=== PATIENT | female | born 1995 | race Caucasian/White ===

== ENCOUNTER 2018-02-02 22:25 | Emergency (ER) | payer BC, OTHER ==
[2018-02-02 22:51] VITALS: BP 121/71; PULSE 84; RESP 18; TEMP 98.2
--- NOTE | 2018-02-02 23:02 | ED PDOC ---
HPI: Female Pain Time Seen by Provider: 02/02/18 22:58 Chief Complaint (Nursing): Female Genitourinary Chief Complaint (Provider): hematuria History Per: Patient Additional Complaint(s): 23-year-old female with no past medical history presents to emergency department with hematuria and suprapubic pain that started 2 hours prior to arrival. Patient denies fever or chills. No associated flank pain or back pain. PMD: Dr. Cordell De Jesus Past Medical History Reviewed: Historical Data, Nursing Documentation, Vital Signs Vital Signs: Last Vital Signs Temp 98.2 F 02/02/18 22:47 Pulse 84 02/02/18 22:47 Resp 18 02/02/18 22:47 BP 121/71 02/02/18 22:47 Pulse Ox 10 L 02/02/18 22:47 - Medical History PMH: Anxiety - Surgical History Surgical History: No Surg Hx - Family History Family History: States: No Known Family Hx - Living Arrangements Living Arrangements: With Friends/Others - Social History Current smoker - smoking cessation education provided: No Alcohol: Social Drugs: Denies - Home Medications Home Medications: Ambulatory Orders Medication Instructions Recorded Meloxicam 15 mg PO DAILY #14 tab 09/15/15 Nitrofurantoin Macrocrystals 100 mg PO BID #14 cap 02/02/18 [Macrobid] Phenazopyridine HCl [Pyridium] 200 mg PO TID PRN #9 tablet 02/02/18 - Allergies Allergies/Adverse Reactions: Allergies Allergy/AdvReac Type Severity Reaction Status Date / Time No Known Allergies Allergy Verified 09/15/15 08:48 Review of Systems ROS Statement: Except As Marked, All Systems Reviewed And Found Negative Constitutional: Negative for: Fever, Chills Gastrointestinal: Positive for: Abdominal Pain (suprapubic). Negative for: Nausea, Vomiting Genitourinary Female: Positive for: Dysuria, Hematuria. Negative for: Vaginal Bleeding Physical Exam - Reviewed Nursing Documentation Reviewed: Yes Vital Signs Reviewed: Yes - Physical Exam Appears: Positive for: Well, Non-toxic, No Acute Distress Skin: Negative for: Rash Eye Exam: Positive for: Normal appearance Cardiovascular/Chest: Positive for: Regular Rate, Rhythm Respiratory: Positive for: Normal Breath Sounds Gastrointestinal/Abdominal: Positive for: Soft, Tenderness (suprapubic). Negative for: Distended, Guarding, Rebound Back: Negative for: L CVA Tenderness, R CVA Tenderness Extremity: Positive for: Normal ROM Neurologic/Psych: Positive for: Alert, Oriented - Laboratory Results Urine POC: Negative Urine dip results: Positive for: Leukocyte Esterase (large), Blood (large), Nitrate (positive) - ECG O2 Sat by Pulse Oximetry: 100 Pulse Ox Interpretation: Normal Medical Decision Making Medical Decision Making: Impression: Hemorrhagic cystitis Plan: Urine dip Urine test Urine culture PO macrobid 100 mg PO pyridium 200 mg Prescriptions given for Macrobid and Pyridium. Advised fluids, rest and follow- up with primary doctor in 2-3 days. Disposition - Clinical Impression Clinical Impression: Hemorrhagic cystitis - Patient ED Disposition Is Patient to be Admitted: No Counseled Patient/Family Regarding: Studies Performed, Diagnosis, Need For Followup, Rx Given - Disposition Referrals: José Luis De Jesus MD [Medical Doctor] - Disposition: Routine/Home Disposition Time: 23:21 Condition: STABLE Additional Instructions: Take prescription meds as directed. Drink plenty of fluids. Follow up with primary doctor in 2-3 days. Prescriptions: Nitrofurantoin Macrocrystals [Macrobid] 100 mg PO BID #14 cap Phenazopyridine HCl [Pyridium] 200 mg PO TID PRN #9 tablet PRN Reason: Bladder Spasm Instructions: Acute Cystitis (DC) Forms: [employer] (Salvadorean)
[2018-02-02 23:46] VITALS: O2SAT 100
== END 2018-02-02 23:54 | disposition home or self-care (01) ==
LOC: H.ER 22:25
DX: N30.90 Cystitis, unspecified without hematuria (principal)

== ENCOUNTER 2018-02-17 03:52 | Emergency (ER) | payer OTHER ==
[2018-02-17 04:06] VITALS: BMI 46.9
--- NOTE | 2018-02-17 04:19 | ED PDOC ---
HPI: Psych/Substance Abuse Time Seen by Provider: 02/17/18 03:56 Chief Complaint (Provider): alcohol/ substance abuse ED Caveat: Intoxicated History Per: EMS History/Exam Limitations: no limitations Onset/Duration Of Symptoms: Mins (just prior to arrival) Current Symptoms Are (Timing): Still Present Additional Complaint(s): 23 yo female, brought in by EMS, with a history of anxiety presents to the ED for intoxication and possible substance abuse. Patient history and review of systems are unobtainable because the patient is currently intoxicated , uncooperative, and unable to answer any of the provider's questions. Past Medical History Reviewed: Historical Data, Nursing Documentation, Vital Signs, Unable To Obtain (patient is currently intoxicated, uncooperative, and unable to answer any of the provider's question) - Medical History PMH: Anxiety - Surgical History Surgical History: No Surg Hx - Family History Family History: States: Unknown Family Hx - Living Arrangements Living Arrangements: Other (is a [employer] student and dorms) - Home Medications Home Medications: Ambulatory Orders Medication Instructions Recorded Meloxicam 15 mg PO DAILY #14 tab 09/15/15 Nitrofurantoin Macrocrystals 100 mg PO BID #14 cap 02/02/18 [Macrobid] Phenazopyridine HCl [Pyridium] 200 mg PO TID PRN #9 tablet 02/02/18 - Allergies Allergies/Adverse Reactions: Allergies Allergy/AdvReac Type Severity Reaction Status Date / Time No Known Allergies Allergy Verified 09/15/15 08:48 Review of Systems ROS Statement: Except As Marked, All Systems Reviewed And Found Negative Review Of Systems: ROS cannot be obtained secondary to pt's inabilty to answer questions. (patient is currently intoxicated, uncooperative, and unable to answer any of the provider's question) Physical Exam - Reviewed Nursing Documentation Reviewed: Yes Vital Signs Reviewed: Yes - Physical Exam Appears: Positive for: Well, Non-toxic, No Acute Distress Head Exam: Positive for: ATRAUMATIC, NORMAL INSPECTION, NORMOCEPHALIC Skin: Positive for: Normal Color, Warm, DRY Eye Exam: Positive for: EOMI, Normal appearance, PERRL ENT: Positive for: Normal ENT Inspection Neck: Positive for: Normal, Painless ROM Cardiovascular/Chest: Positive for: Regular Rate, Rhythm. Negative for: Murmur Respiratory: Positive for: Normal Breath Sounds. Negative for: Respiratory Distress Gastrointestinal/Abdominal: Positive for: Normal Exam, Soft. Negative for: Tenderness Back: Positive for: Normal Inspection Extremity: Positive for: Normal ROM. Negative for: Pedal Edema, Deformity Neurologic/Psych: Positive for: Alert (responsive but uncooperative at times), Other (patient is sexually preoccupied). Negative for: Oriented, Motor/Sensory Deficits - Laboratory Results Result Diagrams: 02/17/18 05:09 02/17/18 05:09 - Critical Care Total Time (In Min): 30 Medical Decision Making Medical Decision Making: Time: --04:06 Impression: --23 yo female with alcohol/substance abuse Plan: --ECG --Labs --Drug screen, urine --ed urine dip -urine preg --Dextrose IV --Haldol 5mg IM --Ativan 2mg IM --Heplock Insertion --1:1 Observation Cont --Accucheck --Restraint: Violent or harm to self/other --urinalysis Reassess --04:15 4 point restraints were ordered in order to ensure the safety of the staff and the patient herself because she is being uncooperative and violent. --07:00 Patient to be signed out to Dr. Acuna pending clinical sobriety and reevaluation. Scribe Attestation: Documented by Alcon Rodney acting as a scribe for Florencio Freeman MD. Provider Attestation: All medical record entries made by the Scribe were at my direction and personally dictated by me. I have reviewed the chart and agree that the record accurately reflects my personal performance of the history, physical exam, medical decision making, and the department course for this patient. I have also personally directed, reviewed, and agree with the discharge instructions and disposition. Disposition - Clinical Impression Clinical Impression: Alcohol abuse with intoxication - Patient ED Disposition Is Patient to be Admitted: Transfer of Care - Disposition Disposition: Transfer of Care Disposition Time: 07:00 Condition: FAIR Patient Signed Over To: José Luis Acuna
[2018-02-17 05:14] LABS: BASO % 0.3 % (0.0-2.0); HEMOGLOBIN 13.3 g/dL (12.0-16.0); LYMPH # 0.8 K/uL (1.0-4.3); LYMPH % 7.6 % (20.0-40.0); MEAN CORPUSCULAR HEMOGLOBIN 30.2 pg (27.0-31.0); MEAN CORPUSCULAR HGB CONC 33.2 g/dL (33.0-37.0); MEAN PLATELET VOLUME 7.5 fl (7.2-11.7); MONO # 0.3 K/uL (0.0-0.8); MONO % 3.4 % (0.0-10.0); NEUT # 8.9 K/uL (1.8-7.0); NEUT % 88.7 % (50.0-75.0); PLATELET COUNT 261 K/uL (130-400); RBC 4.42 Mil/uL (3.80-5.20); RED CELL DISTRIBUTION WIDTH 13.4 % (11.5-14.5); WHITE BLOOD COUNT 10.1 K/uL (4.8-10.8)
[2018-02-17 05:19] LABS: ALB/GLOB RATIO 1.2 (1.0-2.1); ALT/SGPT 43 U/L (9-52); AST/SGOT 37 U/L (14-36); BLOOD UREA NITROGEN 14 mg/dl (7-17); CALCIUM 8.1 mg/dL (8.4-10.2); GFR AFRICAN-AMERICAN > 60; GFR NON-AFRICAN AMERICAN > 60
[2018-02-17] MEDS: Dextrose 5%/0.45% NS 1,000 ML IV SCH (05:39)
[2018-02-17 07:03] VITALS: O2SAT 100
--- NOTE | 2018-02-17 07:13 | ED PDOC ---
- Laboratory Results Result Diagrams: 02/17/18 05:09 02/17/18 05:09 - ECG O2 Sat by Pulse Oximetry: 100 Medical Decision Making Medical Decision Making: Time: 07:00 Patient signed over to me by Dr. Freeman pending clinical sobriety and reevaluation. no evidence of assault on physical exam. Discussed with [employer] and [place]. Pt in agreement that she does not wish to pursue legal action as their is no evidence of assault. Will test for GC, Chlamydia, HIV and Hepatitis. No prophylaxis necessary as their is no evidence of sexual contact. Scribe Attestation: Documented by Kirk Kay, acting as a scribe for José Luis Acuna MD. Provider Scribe Attestation: All medical record entries made by the Scribe were at my direction and personally dictated by me. I have reviewed the chart and agree that the record accurately reflects my personal performance of the history, physical exam, medical decision making, and the department course for this patient. I have also personally directed, reviewed, and agree with the discharge instructions and disposition. Disposition - Clinical Impression Clinical Impression: Alcohol intoxication - POA Present On Arrival: None - Disposition Referrals: [facility] [Outside] Disposition: Routine/Home Disposition Time: 14:24 Condition: FAIR Instructions: Alcohol Abuse and Alcoholism (DC) Forms: [employer] (Gambian) Physical Exam - RECTAL Rectal: absent: lesions (No lacerations or bruising. No bleeding) - GENITOURINARY / PELVIC FEMALE Genitourinary / Pelvic Exam: normal external genitalia, no cervical motion tender, no adenexal tenderness, no vaginal discharge. absent: vaginal lesions ( No external lacerations or bruising. No vaginal wall tears. No discharge or bleeding. No tenderness on bimanual exam.)
[2018-02-17 08:17] LABS: BARBITURATES, UR NEGATIVE (NEGATIVE); BENZODIAZEPINES, UR NEGATIVE (NEGATIVE); OPIATES, UR NEGATIVE (NEGATIVE); PHENCYCLIDINE, UR NEGATIVE (NEGATIVE)
[2018-02-17 08:20] VITALS: RESP 14
--- NOTE | 2018-02-17 09:50 | CARD ---
APPROVED REPORT EKG Measurement Heart [id number] <Conclusion> Normal sinus rhythm Prolonged QT Abnormal ECG
[2018-02-17 10:19] LABS: LYMPHOCYTE 7 % (20-50); MONOCYTE 4 % (0-10); NEUTROPHIL 89 % (42-75); PLATELET ESTIMATE NORMAL (NORMAL); TOTAL CELLS COUNTED 100
[2018-02-17 12:30] VITALS: BP 106/68; PULSE 81; TEMP 98
[2018-02-17 15:02] LABS: URINE BILIRUBIN NEGATIVE (NEGATIVE); URINE BLOOD NEGATIVE (NEGATIVE); URINE CLARITY CLEAR (Clear); URINE COLOR STRAW (YELLOW); URINE GLUCOSE (UA) 150 mg/dL (Normal); URINE LEUKOCYTE ESTERASE NEG Leu/uL (Negative); URINE PROTEIN NEGATIVE (NEGATIVE); URINE UROBILINOGEN 0.2-1.0 mg/dL (0.2-1.0)
[2018-02-17] MEDS ORDERED: cefTRIAXone (Rocephin) 1 gm Inj ONE (15:41)
[2018-02-17] MEDS ORDERED: Potassium Chloride 20 mEq ER Tab PO ONE (16:07)
[2018-02-17] MEDS: Potassium Chloride 20 mEq ER Tab PO ONE (16:09)
[2018-02-17 20:51] LABS: HEPATITIS B SURFACE AG Negative (NEGATIVE)
[2018-02-17 20:57] LABS: HEPATITIS A IGM NEGATIVE (NEGATIVE); HEPATITIS B CORE AB NEGATIVE (NEGATIVE)
[2018-02-17 21:09] LABS: HEPATITIS C ANTIBODY NEGATIVE (NEGATIVE)
== END 2018-02-17 18:15 | disposition home or self-care (01) ==
LOC: H.ER 03:52
DX: F10.129 Alcohol abuse with intoxication, unspecified (principal); F41.9 Anxiety disorder, unspecified
CPT/HCPCS: 80053; 80074; 80320; 80324; 80345; 80346; 80349; 80353; 80358; 80361; 81003; 81025; 82948; 83992; 84702; 85025; 87390; 87491; 87591; 93005; 96360; 96372; 99285; J0696; J1630; J2060; J7042

== ENCOUNTER 2018-05-18 23:51 | Emergency (ER) | payer OTHER ==
[2018-05-18 23:51] VITALS: BMI 46.9
[2018-05-18 23:55] VITALS: BP 116/76; PULSE 64; RESP 16; TEMP 97.7; O2SAT 98
--- NOTE | 2018-05-19 02:19 | ED PDOC ---
HPI: General Adult Time Seen by Provider: 05/19/18 02:10 Chief Complaint (Nursing): GI Problem Chief Complaint (Provider): Dehydration History Per: Patient History/Exam Limitations: no limitations Onset/Duration Of Symptoms: Hrs (x3) Current Symptoms Are (Timing): Better Additional Complaint(s): 23 year old female brought in by EMS presents to ED for dehydration x3 hours and has no past medical history. Patient states she was at a music festival for the past 5 days, at which she ingested alcohol for long periods of time and had prolonged sun exposure. (+) nausea, (-) vomiting or fever. Patient's boyfriend states the patient had an episode of extreme weakness earlier as well. Confirms attempting hydration with Pedialyte and water. PCP: Nancy Past Medical History Reviewed: Historical Data, Nursing Documentation, Vital Signs Vital Signs: Last Vital Signs Temp 97.7 F 05/19/18 06:55 Pulse 64 05/19/18 06:55 Resp 16 05/19/18 06:55 BP 116/76 05/19/18 06:55 Pulse Ox 98 05/19/18 06:55 - Medical History PMH: Anxiety Denies: Diabetes, Hepatitis, HIV, HTN, Seizures, Sexually Transmitted Disease - Surgical History Surgical History: No Surg Hx - Family History Family History: States: Unknown Family Hx - Social History Current smoker - smoking cessation education provided: No Ex-Smoker (has not smoked in the last 12 months): No Alcohol: Social Drugs: Denies - Home Medications Home Medications: Ambulatory Orders Medication Instructions Recorded Meloxicam 15 mg PO DAILY #14 tab 09/15/15 Nitrofurantoin Macrocrystals 100 mg PO BID #14 cap 02/02/18 [Macrobid] Phenazopyridine HCl [Pyridium] 200 mg PO TID PRN #9 tablet 02/02/18 Levonorgestrel [Plan B One-Step] 1.5 mg PO ONCE 1 Days #1 tab 02/17/18 Metronidazole [Flagyl] 2,000 mg PO ONCE #4 tablet 02/17/18 - Allergies Allergies/Adverse Reactions: Allergies Allergy/AdvReac Type Severity Reaction Status Date / Time No Known Allergies Allergy Verified 05/18/18 23:52 Review of Systems ROS Statement: Except As Marked, All Systems Reviewed And Found Negative Constitutional: Positive for: Other ((+) dehydration). Negative for: Fever Gastrointestinal: Positive for: Nausea. Negative for: Vomiting Physical Exam - Reviewed Nursing Documentation Reviewed: Yes Vital Signs Reviewed: Yes - Physical Exam Appears: Positive for: Well, No Acute Distress. Negative for: Non-toxic ( currently resting in bed in NAD, sleeping comfortably every time i go into the room) Skin: Positive for: Normal Color, Warm, Dry Eye Exam: Positive for: Normal appearance Neck: Positive for: Normal Cardiovascular/Chest: Positive for: Regular Rate, Rhythm. Negative for: Murmur Respiratory: Positive for: Normal Breath Sounds. Negative for: Respiratory Distress Gastrointestinal/Abdominal: Positive for: Soft. Negative for: Tenderness Extremity: Positive for: Normal ROM. Negative for: Deformity Neurologic/Psych: Positive for: Alert, Oriented. Negative for: Motor/Sensory Deficits - Laboratory Results Result Diagrams: 05/19/18 02:36 05/19/18 02:36 - ECG O2 Sat by Pulse Oximetry: 98 (RA) Pulse Ox Interpretation: Normal Medical Decision Making Medical Decision Makin Initial impression: alcohol-induced dehydration Initial plan: * BETA HCG * Labs * NS IV * Zofran 4mg IV * Urine C&S * UA * Re-eval 0330 Blood work and chemistry reviewed: no clinically significant abnormalities. Pending urine. 0355 Labs reviewed: no clinically significant abnormalities. Upon re-evaluation, patient note improvement in symptoms. Patient is stable for discharge home Dx: weakness Condition: stable Scribe Attestation: Documented by Hailey Kay acting as a scribe for Talisha Sinclair MD. Scribe Attestation: All medical record entries made by the Scribe were at my direction and personally dictated by me. I have reviewed the chart and agree that the record accurately reflects my personal performance of the history, physical exam, medical decision making, and the department course for this patient. I have also personally directed, reviewed, and agree with the discharge instructions and disposition. Disposition - Clinical Impression Clinical Impression: Weakness - Patient ED Disposition Is Patient to be Admitted: No Counseled Patient/Family Regarding: Studies Performed, Diagnosis, Need For Followup - Disposition Referrals: José Luis De Jesus MD [Primary Care Provider] - Disposition: Routine/Home Disposition Time: 03:55 Condition: IMPROVED Additional Instructions: ÁNGEL CHRISTIANSON, thank you for letting us take care of you today. Your provider was Talisha Sinclair MD and you were treated for VOMITING, WEAKNESS. The emergency medical care you received today was directed at your acute symptoms. If you were prescribed any medication, please fill it and take as directed. It may take several days for your symptoms to resolve. Return to the Emergency Department if your symptoms worsen, do not improve, or if you have any other problems. Please contact your doctor or call one of the physicians/clinics you have been referred to that are listed on the Patient Visit Information form that is included in your discharge packet. Bring any paperwork you were given at discharge with you along with any medications you are taking to your follow up visit. Our treatment cannot replace ongoing medical care by a primary care provider outside of the emergency department. Thank you for allowing the [facility] team to be part of your care today. If you had an X-Ray or CT scan: A Radiologist will review the ED reading if any change in treatment is needed we will contact you. If you had a blood, urine, or wound culture: It will take several days for the results, if any change in treatment is needed we will contact you. If you had an STI test: It will take 48 hours for the results. Please call after 1 week if you have not heard back. Instructions: Weakness (ED) Forms: [employer] (North Korean)
[2018-05-19 02:52] LABS: BASO # 0.1 K/uL (0.0-0.2); BASO % 0.9 % (0.0-2.0); EOS # 0.1 K/uL (0.0-0.7); EOS % 0.8 % (0.0-4.0); HEMOGLOBIN 13.6 g/dL (12.0-16.0); LYMPH # 2.3 K/uL (1.0-4.3); MEAN CORPUSCULAR HEMOGLOBIN 29.6 pg (27.0-31.0); MEAN CORPUSCULAR HGB CONC 33.2 g/dL (33.0-37.0); MEAN PLATELET VOLUME 7.3 fl (7.2-11.7); MONO # 0.7 K/uL (0.0-0.8); NEUT # 4.9 K/uL (1.8-7.0); NEUT % 60.3 % (50.0-75.0); RBC 4.59 Mil/uL (3.80-5.20); RED CELL DISTRIBUTION WIDTH 14.3 % (11.5-14.5); WHITE BLOOD COUNT 8.1 K/uL (4.8-10.8)
[2018-05-19 02:53] LABS: ALB/GLOB RATIO 1.1 (1.0-2.1); ALBUMIN 3.5 g/dL (3.5-5.0); ALT/SGPT 26 U/L (9-52); AST/SGOT 24 U/L (14-36); BLOOD UREA NITROGEN 14 mg/dl (7-17); CALCIUM 8.9 mg/dL (8.4-10.2); GFR AFRICAN-AMERICAN > 60; GFR NON-AFRICAN AMERICAN > 60
[2018-05-19] MEDS: Sodium Chloride 0.9% 1,000 ML IV STA (03:26)
[2018-05-19 03:40] LABS: SPERM URINE RARE /hpf; SQUAMOUS EPITHIAL 2 /hpf (0-5); URINE BILIRUBIN NEGATIVE (NEGATIVE); URINE BLOOD SMALL (NEGATIVE); URINE CLARITY SLIGHTY-CLOUDY (Clear); URINE COLOR YELLOW (YELLOW); URINE GLUCOSE (UA) NEG (Normal); URINE HYALINE CAST 0-2 /hpf (0-2); URINE LEUKOCYTE ESTERASE NEG Leu/uL (Negative); URINE PROTEIN NEGATIVE (NEGATIVE); URINE UROBILINOGEN 0.2-1.0 mg/dL (0.2-1.0)
== END 2018-05-19 04:21 | disposition home or self-care (01) ==
LOC: H.ER 23:51
DX: R53.1 Weakness (principal); E86.0 Dehydration; F41.9 Anxiety disorder, unspecified; Z87.891 Personal history of nicotine dependence
CPT/HCPCS: 80053; 81003; 84702; 85025; 87086; 99283; J7030

== ENCOUNTER 2018-09-23 09:24 | Emergency (ER) | payer OTHER ==
[2018-09-23 09:24] VITALS: BMI 46.9
--- NOTE | 2018-09-23 10:21 | ED PDOC ---
HPI: Abdomen Time Seen by Provider: 09/23/18 09:36 Chief Complaint (Nursing): Abdominal Pain Chief Complaint (Provider): Abdominal pain History Per: Patient History/Exam Limitations: no limitations Additional Complaint(s): Pt @ 16 weeks gestation presents with one episode of vomiting and lower abdominal pain X 1 day. + ultrasound in past. Denies fever, constipation, diarrhea, vaginal bleeding. Abnormal Vaginal Bleeding: No Last Menstral Period: 06/09/18 : 1 Para: 0 Miscarriage: 0 Past Medical History Reviewed: Nursing Documentation, Vital Signs Vital Signs: Last Vital Signs Temp 97.5 F L 09/23/18 09:47 Pulse 92 H 09/23/18 09:47 Resp 18 09/23/18 09:47 BP 114/72 09/23/18 09:47 Pulse Ox 100 09/23/18 09:47 - Medical History PMH: Anxiety Denies: Diabetes, Hepatitis, HIV, HTN, Seizures, Sexually Transmitted Disease - Family History Family History: States: Unknown Family Hx - Social History Current smoker - smoking cessation education provided: No Alcohol: None - Home Medications Home Medications: Ambulatory Orders Medication Instructions Recorded RX: Meloxicam 15 mg PO DAILY #14 tab 09/15/15 Nitrofurantoin Macrocrystals 100 mg PO BID #14 cap 02/02/18 [Macrobid] Phenazopyridine HCl [Pyridium] 200 mg PO TID PRN #9 tablet 02/02/18 Levonorgestrel [Plan B One-Step] 1.5 mg PO ONCE 1 Days #1 tab 02/17/18 Metronidazole [Flagyl] 2,000 mg PO ONCE #4 tablet 02/17/18 Doxylamine/Pyridoxine HCl (B6) 1 each PO QPM PRN #15 tablet. 09/23/18 [Jana Taylor 10-10 mg Tablet] - Allergies Allergies/Adverse Reactions: Allergies Allergy/AdvReac Type Severity Reaction Status Date / Time No Known Allergies Allergy Verified 05/18/18 23:52 Review of Systems Constitutional: Negative for: Fever, Chills Cardiovascular: Negative for: Chest Pain Respiratory: Negative for: Cough, Shortness of Breath Gastrointestinal: Positive for: Nausea, Vomiting, Abdominal Pain. Negative for: Diarrhea Genitourinary Female: Negative for: Dysuria, Hematuria, Vaginal Discharge, Vaginal Bleeding Musculoskeletal: Negative for: Neck Pain, Back Pain Skin: Negative for: Rash, Lesions Neurological: Negative for: Headache, Dizziness Physical Exam - Reviewed Nursing Documentation Reviewed: Yes Vital Signs Reviewed: Yes - Physical Exam Appears: Positive for: Uncomfortable Head Exam: Positive for: ATRAUMATIC, NORMAL INSPECTION Skin: Positive for: Normal Color, Warm, Dry Eye Exam: Positive for: Normal appearance, EOMI, PERRL Cardiovascular/Chest: Positive for: Regular Rate, Rhythm Respiratory: Positive for: Normal Breath Sounds Gastrointestinal/Abdominal: Positive for: Bowel Sounds, Soft, Tenderness (LLQ). Negative for: Mass, Distended, Guarding, Rebound Extremity: Positive for: Normal ROM Neurologic/Psych: Positive for: Alert, Oriented - Laboratory Results Result Diagrams: 09/23/18 10:49 09/23/18 10:49 - ECG O2 Sat by Pulse Oximetry: 100 Medical Decision Making Medical Decision Makin yo female @ 16 weeks with LLQ pain. - labs - pelvic ultrasound - Tylenol - Zofran - IVF Accession No. : [id number] Patient Name / ID : SAMMY NEAL / [id number] Exam Date : 09/23/2018 12:02:05 ( Approved ) Study Comment : Sex / Age : F / 23Y Creator : luda corbett Dictator : Cruzito Rich MD Cheese Blender : Label Printing Machinist : Cruzito Rich MD Approver2 : Report Date : 09/23/2018 12:39:46 My Comment : Date of service: 09/23/2018 PROCEDURE: Second trimester limited ultrasound HISTORY: Pelvic pain, 16 weeks COMPARISON: None TECHNIQUE: Standard protocol for this study/examination. FINDINGS: Breech presentation. Posterior placenta. No evidence of abruption or previa Gestational age derived from LMP 15 weeks 1 day. JAMAL 03/16/2019. Gestational age derived from the following biometric parameters 16 weeks 1 day. JAMAL 03/09/2019 Biparietal diameter 3.33 cm Head circumference 12.28 cm Abdominal circumference 10.14 cm Femur length 2.05 cm Estimated weight 146 g Calculated cardiac rate 162 beats per min. Closed cervix measuring 4.33 cm Unremarkable maternal adnexae as visualized. IMPRESSION: 16 weeks 1 day live intrauterine gestation. Gestational concordance documented Disposition - Clinical Impression Clinical Impression: Abdominal pain during - Disposition Disposition: Routine/Home Disposition Time: 13:15 Condition: STABLE Additional Instructions: FOLLOW-UP WITH YOUR OB WITHIN 2 DAYS FOR REEVALUATION. TAKE TYLENOL NEEDED FOR PAIN. Prescriptions: Doxylamine/Pyridoxine HCl (B6) [Jana Taylor 10-10 mg Tablet] 1 each PO QPM PRN #15 tablet. PRN Reason: Nausea/Vomiting Instructions: Acute Abdomen (Belly Pain), - The Fourth Month, - The Fifth Month Forms: [employer] (Kyrgyz)
[2018-09-23 10:40] LABS: SQUAMOUS EPITHIAL 6 /hpf (0-5); URINE BACTERIA RARE (<OCC); URINE BILIRUBIN NEGATIVE (NEGATIVE); URINE BLOOD NEGATIVE (NEGATIVE); URINE CLARITY CLOUDY (Clear); URINE COLOR YELLOW (YELLOW); URINE GLUCOSE (UA) NEG (Normal); URINE LEUKOCYTE ESTERASE NEG Leu/uL (Negative); URINE PROTEIN 30 mg/dL (NEGATIVE); URINE UROBILINOGEN 0.2-1.0 mg/dL (0.2-1.0)
[2018-09-23] MEDS: Sodium Chloride 0.9% 1,000 ML IV STA (10:56)
[2018-09-23 10:59] LABS: BASO % 0.3 % (0.0-2.0); EOS % 0.1 % (0.0-4.0); HEMOGLOBIN 13.1 g/dL (12.0-16.0); LYMPH # 1.2 K/uL (1.0-4.3); LYMPH % 12.8 % (20.0-40.0); MEAN CORPUSCULAR HEMOGLOBIN 32.5 pg (27.0-31.0); MEAN CORPUSCULAR HGB CONC 36.5 g/dL (33.0-37.0); MEAN PLATELET VOLUME 7.2 fl (7.2-11.7); MONO # 0.5 K/uL (0.0-0.8); MONO % 5.6 % (0.0-10.0); NEUT # 7.8 K/uL (1.8-7.0); NEUT % 81.2 % (50.0-75.0); RBC 4.04 Mil/uL (3.80-5.20); RED CELL DISTRIBUTION WIDTH 13.6 % (11.5-14.5); WHITE BLOOD COUNT 9.6 K/uL (4.8-10.8)
[2018-09-23 11:10] LABS: ALBUMIN 3.6 g/dL (3.5-5.0); BLOOD UREA NITROGEN 7 mg/dl (7-17); CALCIUM 9.3 mg/dL (8.4-10.2); GFR NON-AFRICAN AMERICAN > 60
[2018-09-23 11:11] LABS: ALB/GLOB RATIO 1.1 (1.0-2.1); ALT/SGPT 26 U/L (9-52); AST/SGOT 22 U/L (14-36)
[2018-09-23 11:29] VITALS: RESP 18; TEMP 97.5; O2SAT 100
--- NOTE | 2018-09-23 13:21 | US ---
Date of service: 09/23/2018 PROCEDURE: Second trimester limited ultrasound HISTORY: Pelvic pain, 16 weeks COMPARISON: None TECHNIQUE: Standard protocol for this study/examination. FINDINGS: Breech presentation. Posterior placenta. No evidence of abruption or previa Gestational age derived from LMP 15 weeks 1 day. JAMAL 03/16/2019. Gestational age derived from the following biometric parameters 16 weeks 1 day. JAMAL 03/09/2019 Biparietal diameter 3.33 cm Head circumference 12.28 cm Abdominal circumference 10.14 cm Femur length 2.05 cm Estimated weight 146 g Calculated cardiac rate 162 beats per min. Closed cervix measuring 4.33 cm Unremarkable maternal adnexae as visualized. IMPRESSION: 16 weeks 1 day live intrauterine gestation. Gestational concordance documented
[2018-09-23 13:50] VITALS: BP 118/70; PULSE 88
== END 2018-09-23 13:48 | disposition home or self-care (01) ==
LOC: H.ER 09:24
DX: O26.92 Pregnancy related conditions, unspecified, second trimester (principal); R10.2 Pelvic and perineal pain; Z3A.16 16 weeks gestation of pregnancy
CPT/HCPCS: 76815; 80053; 81003; 81025; 85025; 96374; 99284; J2405; J7030

== ENCOUNTER 2018-11-11 10:32 | Emergency (ER) | payer OTHER ==
[2018-11-11 10:32] VITALS: BMI 46.9
[2018-11-11 10:37] VITALS: RESP 18
--- NOTE | 2018-11-11 11:49 | ED PDOC ---
HPI: Psych/Substance Abuse Time Seen by Provider: 11/11/18 10:48 Chief Complaint (Nursing): Psychiatric Evaluation Chief Complaint (Provider): PSychiatric Evaluation History Per: Patient History/Exam Limitations: no limitations Current Symptoms Are (Timing): Still Present Additional Complaint(s): 23 year old female presenting for psychiatric evaluation. Patient reports she is at 23 weeks and . Patient states she is here today due to feelings of anxiety and a prior suicidal attempt. Patient states she's been feeling a lot of pressure from missing school due to her and anxiety from her family who is pushing her for an which she and her boyfriend do not feel comfortably with. Patient states she felt overwhelmed and cut herself on her wrist. Patient states her boyfriend stopped her before she was able to make any deep cuts. Patient states she doesn't want to feel this way and is seeking evaluation. Patient reports a history of depression and anxiety in the past and states she was previously taking Xanax and Celexa. Patient denies any current suicidal ideations or homicidal ideations, and auditory or visual hallucinations. Of note, patient states her parents are no longer allowing her to live at home since her and she cannot stay in her boyfriend's apartment due to a conflict with his roommate over her not being able to work and pay rent. Patient states she is currently living in the lounge of his apartment building, but is only able to sleep 2-3 hours a night due to having to pretend to be working to avoid being thrown out. Past Medical History Reviewed: Historical Data, Nursing Documentation, Vital Signs Vital Signs: Last Vital Signs Temp 98.3 F 11/11/18 10:37 Pulse 78 11/11/18 10:37 Resp 18 11/11/18 10:37 BP 126/62 11/11/18 10:37 Pulse Ox 100 11/11/18 10:37 - Medical History PMH: Anxiety Denies: Diabetes, Hepatitis, HIV, HTN, Seizures, Sexually Transmitted Disease - Surgical History Surgical History: No Surg Hx - Family History Family History: States: Unknown Family Hx - Social History Current smoker - smoking cessation education provided: No Alcohol: None Drugs: Denies - Home Medications Home Medications: Ambulatory Orders Medication Instructions Recorded RX: Meloxicam 15 mg PO DAILY #14 tab 09/15/15 Nitrofurantoin Macrocrystals 100 mg PO BID #14 cap 02/02/18 [Macrobid] Phenazopyridine HCl [Pyridium] 200 mg PO TID PRN #9 tablet 02/02/18 Levonorgestrel [Plan B One-Step] 1.5 mg PO ONCE 1 Days #1 tab 02/17/18 Metronidazole [Flagyl] 2,000 mg PO ONCE #4 tablet 02/17/18 Doxylamine/Pyridoxine HCl (B6) 1 each PO QPM PRN #15 tablet. 09/23/18 [Jana Taylor 10-10 mg Tablet] - Allergies Allergies/Adverse Reactions: Allergies Allergy/AdvReac Type Severity Reaction Status Date / Time No Known Allergies Allergy Verified 11/11/18 10:41 Review of Systems ROS Statement: Except As Marked, All Systems Reviewed And Found Negative Constitutional: Negative for: Fever, Chills Cardiovascular: Negative for: Chest Pain Respiratory: Negative for: Shortness of Breath Gastrointestinal: Negative for: Abdominal Pain Genitourinary Female: Negative for: Dysuria, Frequency, Incontinence, Vaginal Bleeding Psych: Positive for: Anxiety. Negative for: Psychosis, Suicidal ideation Physical Exam - Reviewed Nursing Documentation Reviewed: Yes Vital Signs Reviewed: Yes - Physical Exam Appears: Positive for: Non-toxic, No Acute Distress Head Exam: Positive for: ATRAUMATIC, NORMAL INSPECTION, NORMOCEPHALIC Skin: Positive for: Normal Color, Warm, Dry. Negative for: Rash Eye Exam: Positive for: EOMI, Normal appearance, PERRL ENT: Positive for: Normal ENT Inspection Neck: Positive for: Normal, Painless ROM, Supple Cardiovascular/Chest: Positive for: Regular Rate, Rhythm. Negative for: Murmur Respiratory: Positive for: Normal Breath Sounds. Negative for: Respiratory Distress Gastrointestinal/Abdominal: Positive for: Soft, Other (gravid uterus). Negative for: Tenderness Back: Positive for: Normal Inspection. Negative for: L CVA Tenderness, R CVA Tenderness, Vertebral Tenderness Extremity: Positive for: Normal ROM, Other (very superficial saha on left forearm, no open lacerations, no active bleeding). Negative for: Pedal Edema, Deformity Neurologic/Psych: Positive for: Alert, Oriented (x3). Negative for: Motor/Sensory Deficits - Laboratory Results Result Diagrams: 11/11/18 11:46 11/11/18 11:46 - ECG O2 Sat by Pulse Oximetry: 100 (RA) Pulse Ox Interpretation: Normal Medical Decision Making Medical Decision Making: Plan: -Acetaminophen level -Alcohol serum level -CMP -Salicylate -UDS -1:1 observation -Urinalysis -Reevaluation Case discussed with crisis who will evaluate the patient. Patient seen and evaluated by crisis. Per Dr. Castaneda, psychiatrist, patient will be discharged with a diagnosis of depression and advised outpatient follow up in the clinic. Scribe Attestation: Documented by Kirk Kay, acting as a scribe for Talisha Sinclair MD. Provider Scribe Attestation: All medical record entries made by the Scribe were at my direction and personally dictated by me. I have reviewed the chart and agree that the record accurately reflects my personal performance of the history, physical exam, medical decision making, and the department course for this patient. I have also personally directed, reviewed, and agree with the discharge instructions and disposition. Disposition - Clinical Impression Clinical Impression: , Depression - Patient ED Disposition Is Patient to be Admitted: No Counseled Patient/Family Regarding: Studies Performed, Diagnosis, Need For F ollowup - Disposition Disposition: Routine/Home Disposition Time: 12:50 Condition: IMPROVED Additional Instructions: follow up with outpatient mental health clinic as instructed. also follow up with gynecology. take vitamins with iron. return to the ED with any worsening or concerning symptoms Instructions: Depression, Depression, Adult (DC), Symptoms Forms: [employer] (Pashto)
[2018-11-11 11:54] LABS: BASO % 0.5 % (0.0-2.0); EOS % 0.2 % (0.0-4.0); HEMOGLOBIN 11.3 g/dL (12.0-16.0); LYMPH # 1.4 K/uL (1.0-4.3); LYMPH % 14.1 % (20.0-40.0); MEAN CELL VOLUME 95.4 fl (81.0-99.0); MEAN CORPUSCULAR HEMOGLOBIN 32.9 pg (27.0-31.0); MEAN CORPUSCULAR HGB CONC 34.4 g/dL (33.0-37.0); MEAN PLATELET VOLUME 6.8 fl (7.2-11.7); MONO # 0.8 K/uL (0.0-0.8); MONO % 7.5 % (0.0-10.0); NEUT # 7.9 K/uL (1.8-7.0); NEUT % 77.7 % (50.0-75.0); NRBC % 0.1 % (0.0-0.0); RBC 3.45 Mil/uL (3.80-5.20); RED CELL DISTRIBUTION WIDTH 13.9 % (11.5-14.5); WHITE BLOOD COUNT 10.2 K/uL (4.8-10.8)
[2018-11-11 12:05] LABS: ALB/GLOB RATIO 1.1 (1.0-2.1); ALBUMIN 3.3 g/dL (3.5-5.0); ALT/SGPT 24 U/L (9-52); AST/SGOT 23 U/L (14-36); BLOOD UREA NITROGEN 7 mg/dl (7-17); CALCIUM 8.6 mg/dL (8.4-10.2); GFR NON-AFRICAN AMERICAN > 60
[2018-11-11 12:17] LABS: ACETAMINOPHEN < 10.0 ug/ml (10.0-30.0); BARBITURATES, UR NEGATIVE (NEGATIVE); BENZODIAZEPINES, UR NEGATIVE (NEGATIVE); OPIATES, UR NEGATIVE (NEGATIVE); PHENCYCLIDINE, UR NEGATIVE (NEGATIVE); SALICYLATE < 1.0 mg/dl
[2018-11-11 12:18] LABS: SQUAMOUS EPITHIAL 7 /hpf (0-5); URINE AMORPHOUS SEDIMENT FEW /ul (<OCC); URINE BILIRUBIN NEGATIVE (NEGATIVE); URINE BLOOD NEGATIVE (NEGATIVE); URINE CLARITY TURBID (Clear); URINE COLOR YELLOW (YELLOW); URINE GLUCOSE (UA) NEG (NEGATIVE); URINE LEUKOCYTE ESTERASE NEG Leu/uL (Negative); URINE PROTEIN NEGATIVE (NEGATIVE); URINE UROBILINOGEN 0.2-1.0 mg/dL (0.2-1.0)
[2018-11-11 12:52] VITALS: BP 111/58; PULSE 81; TEMP 97
[2018-11-11 16:03] VITALS: O2SAT 100
== END 2018-11-11 13:11 | disposition home or self-care (01) ==
LOC: H.ER 10:32
DX: O99.342 Other mental disorders complicating pregnancy, second trimester (principal); Z86.59 Personal history of other mental and behavioral disorders; F32.9 Major depressive disorder, single episode, unspecified; F41.9 Anxiety disorder, unspecified; Z3A.23 23 weeks gestation of pregnancy